=== PATIENT | female | born 1970 | race Caucasian/White ===

== ENCOUNTER → 2017-06-13 | Outpatient (CLI) | payer SELFPAY ==
[~2017-06-13] MED LIST: ACET325 PO; CHOL10002 PO; FERR325 PO; MEDR10 PO
[2017-06-14 13:33] LABS: HPV Genotype 16 Not Detected (NOTDET); HPV Genotype 18 Not Detected (NOTDET)
[2017-06-24 10:47] LABS: HPV High Risk Other Not Detected (NOTDET)
== END ==
LOC: LAB SHORT 12:38 → LAB 12:38
PROVIDERS: Registered Nurse Community Health
DX: Z12.4 Encounter for screening for malignant neoplasm of cervix (principal)
CPT/HCPCS: 87624; G0123

== ENCOUNTER → 2018-10-07 | Outpatient (CLI) | payer OTHER | END | disposition home or self-care (01) | LOC: LAB UCHC 15:46 → LAB SHORT 15:46 | DX: N39.0 Urinary tract infection, site not specified (principal) | CPT/HCPCS: 87086 ==

== ENCOUNTER 2020-11-15 01:38 | Day surgery (SDC) | payer SELFPAY ==
[~2020-11-15 01:38] MED LIST changes: +CHONDROITIN SULFATE; +LEVSOD100 PO; +MAGNESIUM OXID500 MG PO; +TUMS500 MG PO
== END 2020-11-15 09:55 | disposition home or self-care (01) ==
LOC: ATC 01:38
DX: D50.9 Iron deficiency anemia, unspecified (principal); E03.9 Hypothyroidism, unspecified; Z91.048 Other nonmedicinal substance allergy status
CPT/HCPCS: 96365; J2916

== ENCOUNTER 2020-11-22 02:27 | Day surgery (SDC) | payer SELFPAY | END 2020-11-22 10:20 | disposition home or self-care (01) | LOC: ATC 02:27 | DX: D50.9 Iron deficiency anemia, unspecified (principal); E03.9 Hypothyroidism, unspecified; E78.5 Hyperlipidemia, unspecified; M54.5 Low back pain; K21.9 Gastro-esophageal reflux disease without esophagitis; Z91.048 Other nonmedicinal substance allergy status | CPT/HCPCS: 96365; J2916 ==

== ENCOUNTER → 2021-03-23 | Outpatient (CLI) | payer SELFPAY | END | disposition home or self-care (01) | LOC: LAB SHORT 12:00 | DX: N39.0 Urinary tract infection, site not specified (principal) | CPT/HCPCS: 87086 ==

== ENCOUNTER → 2023-07-19 | Outpatient (CLI) | payer OTHER ==
[2023-07-19 19:39] LABS: Appearance, Urine Hazy (Clear); Bilirubin, Urine Neg (Neg); Blood, Urine 1+ (Neg); Color, Urine Yellow (P-Yellow); Glucose Qualitative, Urine Neg (Neg); Ketones, Urine Neg (Neg); Leukocyte Esterase, Urine 3+ (Neg); Nitrite, Urine Neg (Neg); Protein, Urine 1+ (Neg); Urobilinogen, Urine NORM (Normal)
[2023-07-19 19:51] LABS: Bacteria Many /hpf; Mucus Light (0-Heavy); Red Blood Cells, Urine 0-2 /hpf (0-2); Squamous Epithelial Cells Few /hpf (Few); White Blood Cells, Urine 50-100 /hpf (0-5)
== END | disposition home or self-care (01) ==
LOC: LAB SHORT 15:50
PROVIDERS: Student in an Organized Health Care Education/Training Program
DX: R30.0 Dysuria (principal)
CPT/HCPCS: 81001; 87077; 87086; 87186